=== PATIENT | male | born 1955 | race Caucasian/White ===

== ENCOUNTER → 2018-01-23 | Outpatient (CLI) | payer OTHER ==
[2018-01-23 14:05] LABS: BLOOD UREA NITROGEN 20 mg/dl (7-18); CALCIUM 9.2 mg/dl (8.5-10.1); CARBON DIOXIDE 27 mmol/L (21-32); CREATININE 1.13 mg/dl (0.60-1.40); GLUCOSE 97 mg/dl (70-99); POTASSIUM 4.3 mmol/L (3.5-5.1); SODIUM 136 mmol/L (136-145)
== END | disposition home or self-care (01) ==
LOC: C.LABPVFM 08:24
PROVIDERS: ATTEND Family Medicine
DX: I10 Essential (primary) hypertension (principal); Z12.5 Encounter for screening for malignant neoplasm of prostate

== ENCOUNTER 2018-04-19 17:21 | Emergency (ER) | payer OTHER ==
[~2018-04-19] VITALS: Ht 182.9 cm; Wt 115.4 kg
[2018-04-19 17:30] VITALS: Ht 182.9 cm; Wt 115.4 kg
[2018-04-19] MEDS ORDERED: IBUPROFEN 600 MG TAB PO STA (17:50)
[2018-04-19] MEDS ORDERED: HYDROCODONE/ACETAMIN 5/325MG TAB PO ONE (18:00)
--- NOTE | 2018-04-19 18:42 | DIAGNOSTIC IMAGING REPORT ---
R SHOULDER MIN 2 VIEWS ROUTINE CLINICAL HISTORY: Right shoulder pain status post trauma COMPARISON: None. DISCUSSION: No acute fractures or dislocations are visualized. IMPRESSION: No acute fractures or dislocations identified. Electronically signed by: Martin Lim M.D. 04/19/2018 6:40 PM Dictated Date/Time: 04/19/2018 6:40 PM
--- NOTE | 2018-04-19 18:51 | DIAGNOSTIC IMAGING REPORT ---
R ELBOW MIN 3 VIEWS ROUTINE CLINICAL HISTORY: Right elbow pain status post trauma COMPARISON: None. DISCUSSION: The fat pads are not displaced. No fractures or dislocations are visualized. There is an olecranon spur. IMPRESSION: Olecranon spur. No acute fractures or dislocations identified. Electronically signed by: Martin Lim M.D. 04/19/2018 6:49 PM Dictated Date/Time: 04/19/2018 6:49 PM
--- NOTE | 2018-04-19 18:52 | DIAGNOSTIC IMAGING REPORT ---
R FOREARM 2 VIEWS ROUTINE CLINICAL HISTORY: Right forearm pain status post trauma COMPARISON: None. 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 There is olecranon spur. No acute fractures are visualized. IMPRESSION: Postsurgical change. No acute fractures. Electronically signed by: Martin Lim M.D. 04/19/2018 6:50 PM Dictated Date/Time: 04/19/2018 6:50 PM
[2018-04-19] MEDS ORDERED: HYDR-5688 PO (19:17)
[2018-04-19 19:24] VITALS: BP 161/87; PULSE 59; TEMP 36.8; O2SAT 98
[2018-04-19] MEDS ORDERED: NORCO 5/325MG HOME PACK PO ONE (19:30)
--- NOTE | 2018-04-19 22:14 | EMERGENCY ROOM VISIT NOTE ---
History First contact with patient: 17:41 Chief Complaint: SHOULDER PAIN Stated Complaint: RIGHT SHOULDER PAIN FROM FALL History of Present Illness The patient is a 62 year old male who presents to the Emergency Room with complaints of pain in his right arm and shoulder after falling at home about 1 hour ago. The patient states that he was washing his car in his driveway, and was standing on a bucket to wash the roof. He states the bucket tipped, causing him to fall to the ground. The patient initially struck his right forearm, then right elbow off the ground, causing his arm to jolt into his right shoulder. The patient has pain with moving the shoulder. He does not have numbness or paresthesias. He has an old history of right wrist and hand amputation after an industrial accident more than 20 years ago. His stump is sore. Patient did not strike his head or lose consciousness in the fall. He is not having chest pain or chest tightness, shortness of breath. He was able to stand and ambulate after the injury. He rates his current discomfort a 6/10 and has not taken anything [id number] for his symptoms. Review of Systems More than 10 systems were reviewed and otherwise negative with the exception of history of present illness. Past Medical/Surgical History Medical Problems: (1) Amputation of arm, right (2) Hypertension Family History FHx: diabetes FHx: hypertension Social History Smoking Status: Never Smoker Alcohol Use: none Marital Status: Housing Status: lives with significant other Occupation Status: disabled Current/Historical Medications Scheduled PRN Hydrocodone/Acetaminophen 5MG/325MG ([place] 5MG/325MG), 1-2 TABLET PO Q6 PRN for Pain Physical Exam Vital Signs Date Time Temp Pulse Resp B/P (MAP) Pulse Ox O2 Delivery O2 Flow Rate FiO2 04/19/18 19:24 36.8 59 18 161/87 98 04/19/18 17:30 36.8 59 18 161/87 98 Room Air Physical Exam VITALS: Vitals are noted on the nurse's note and reviewed by myself. Vital signs stable. GENERAL: Well-developed, well-nourished, white male, who is in no acute distress and resting comfortably. Patient is cooperative with the examination. HEAD: Normocephalic atraumatic. HEART: Regular rate and rhythm without murmurs gallops or rubs. LUNGS: Clear to auscultation bilaterally without wheezes, rales or rhonchi. No retractions or accessory muscle use. ABDOMEN: Positive normal bowel sounds x 4. Soft, nontender, without masses or organomegaly. No guarding or rebound tenderness. MUSCULOSKELETAL: There is tenderness appreciated throughout the right anterior and lateral shoulder. No scapular tenderness. No clavicular tenderness. The patient has increased discomfort with abduction and external rotation of the right shoulder. Continued tenderness is appreciated along the lateral right arm and right elbow. No laceration or abrasion noted. NEURO: Patient was alert and oriented to person place and time. CN II through XII grossly intact. Medical Decision & Procedures ER Provider Diagnostic Interpretation: R SHOULDER MIN 2 VIEWS ROUTINE CLINICAL HISTORY: Right shoulder pain status post trauma COMPARISON: None. DISCUSSION: No acute fractures or dislocations are visualized. IMPRESSION: No acute fractures or dislocations identified. R ELBOW MIN 3 VIEWS ROUTINE CLINICAL HISTORY: Right elbow pain status post trauma COMPARISON: None. DISCUSSION: The fat pads are not displaced. No fractures or dislocations are visualized. There is an olecranon spur. IMPRESSION: Olecranon spur. No acute fractures or dislocations identified. R FOREARM 2 VIEWS ROUTINE CLINICAL HISTORY: Right forearm pain status post trauma COMPARISON: None. 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 There is olecranon spur. No acute fractures are visualized. IMPRESSION: Postsurgical change. No acute fractures. Medications Administered Medications (Trade) Dose Ordered Sig/Jennifer Route Start Time Stop Time Status Last Admin Dose Admin Ibuprofen (Motrin Tab) 600 mg NOW STAT PO 04/19/18 17:50 04/19/18 17:52 DC 04/19/18 18:04 600 MG Acetaminophen/ Hydrocodone Bitart ([place] 5/325 Tab) 1 tab NOW ONCE PO 04/19/18 18:00 04/19/18 18:01 DC 04/19/18 18:04 1 TAB Acetaminophen/ Hydrocodone Bitart ([place] 5/325mg Home Pack) 1 homepack UD ONCE PO 04/19/18 19:30 04/19/18 19:31 DC 04/19/18 19:19 1 HOMEPACK ED Course Physical exam and history were performed. Nursing notes, EMR, and Medication List were personally reviewed. Patient appears to have fallen today and suffered injury to his right upper arm and right shoulder. The patient was given ibuprofen and Vicodin here in the department. X-rays were performed. The x-rays were reviewed by myself and radiology and do not show acute fracture or dislocation. Clinically I suspect a possible rotator cuff injury and the patient was given an arm sling. He will be given information to follow with orthopedics. He was given additional instructions as below and invited back to the ER with any new, worsening, or concerning symptoms. The chart was completed utilizing [employer] Speech Voice Recognition Software. Grammatical errors, random word insertions, pronoun errors, and incomplete sentences are an occasional consequence of this system due to software limitations, ambient noise, and hardware issues. Any formal questions or concerns about the content, text, or information contained within the body of this dictation should be directly addressed to the provider for clarification. . Medical Decision Differential diagnosis includes, but is not limited to: Sprain, strain, fracture , dislocation, subluxation, contusion, and others Impression Primary Impression: Fall Additional Impression: Injury of right upper extremity Departure Information Dispostion Home / Self-Care Condition FAIR Prescriptions Hydrocodone/Acetaminophen 5MG/325MG ([place] 5MG/325MG) Tab 1-2 TABLET PO Q6 Y for Pain, #15 TAB For Initial Treatment Prov: Jesus Shields PA-C 04/19/18 Referrals Dave Patel MD Forms HOME CARE DOCUMENTATION FORM, IMPORTANT VISIT INFORMATION Patient Instructions My [facility] Additional Instructions You were seen and evaluated today on an emergency basis only. This is not a substitute for, or an effort to provide, complete comprehensive medical care. It is not possible to recognize and treat all injuries or illnesses in a single emergency department visit. For this reason it is recommended that you followup with [facility] orthopedics , Dr. Patel's office office, with any ongoing or persisting symptoms. For baseline pain relief you may alternate ibuprofen and acetaminophen every 4 hours for pain control. Take 600 mg ibuprofen (Advil) and then 4 hours later take 1000 mg acetaminophen (Tylenol). Do not take more than 3000 mg acetaminophen in a single day. [place] (hydrocodone/acetaminophen) 5/325 mg ONE or TWO every 6 hours as needed for worsening breakthrough pain. Do not drink or drive on [place]. This medication will likely make you tired. Do not take [place] and Tylenol at the same time as both contain acetaminophen. [place] may cause constipation. You may wish to take an [id number] stool softener like Colace if this occurs. You are welcome to return to the emergency department anytime with new, worsening, or concerning symptoms. Problem Qualifiers
== END 2018-04-19 19:25 | disposition home or self-care (01) ==
LOC: C.EDB 17:23 → C.EDD 19:25
DX: S49.91XA Unspecified injury of right shoulder and upper arm, initial encounter (principal); W19.XXXA Unspecified fall, initial encounter; Y92.014 Private driveway to single-family (private) house as the place of occurrence of the external cause